=== PATIENT | male | born 1990 | race Caucasian/White ===

== ENCOUNTER 2024-01-03 15:45 | Emergency (ER) | payer MEDICAID ==
[~2024-01-03] VITALS: Ht 182.9 cm; Wt 65.3 kg
[~2024-01-03 15:45] MED LIST: IBUP-814 PO; NO HOME MEDS
[2024-01-03] MEDS ORDERED: HYDR-3965 PO (16:42)
[2024-01-03] MEDS ORDERED: BENZ9GEL TOP (16:42)
[2024-01-03] MEDS: ketorolac trometh. 30mg/ml inj. IV ONE (17:01)
[2024-01-03 17:21] VITALS: BP 130/78; PULSE 88; RESP 18; TEMP 97; O2SAT 97
== END 2024-01-03 17:24 | disposition home or self-care (01) ==
LOC: ER 15:45
DX: S02.5XXA Fracture of tooth (traumatic), initial encounter for closed fracture (principal); F12.90 Cannabis use, unspecified, uncomplicated; Z90.49 Acquired absence of other specified parts of digestive tract; Z98.890 Other specified postprocedural states; Z88.0 Allergy status to penicillin; Z79.1 Long term (current) use of non-steroidal anti-inflammatories (NSAID); X58.XXXA Exposure to other specified factors, initial encounter; Y93.89 Activity, other specified; Y92.89 Other specified places as the place of occurrence of the external cause; Y99.8 Other external cause status
CPT/HCPCS: 96374; 99283; J1885; J7030

== ENCOUNTER 2024-05-16 08:58 | Emergency (ER) | payer MEDICAID ==
[~2024-05-16] VITALS: Ht 182.9 cm; Wt 64.8 kg
[~2024-05-16 08:58] MED LIST changes: +BENZ9GEL TOP; +MELO-100 PO
[2024-05-16 08:59] VITALS: BP 130/88; PULSE 76; TEMP 97.8; O2SAT 100
[2024-05-16] MEDS ORDERED: BUPIVAcaine 0.5% W/EPI /PF 10ml vial IJ STA (09:23)
[2024-05-16] MEDS ORDERED: BENZ9GEL MM (09:39)
[2024-05-16 09:45] VITALS: RESP 16
[2024-05-16] MEDS: acetaminophen 325mg tablet PO ONE (09:45)
[2024-05-16] MEDS: ketorolac trometh 15mg/ml vial 15 MG/ML ML IM ONE (09:45)
== END 2024-05-16 09:52 | disposition home or self-care (01) ==
LOC: ER 08:58
DX: K08.89 Other specified disorders of teeth and supporting structures (principal); Z88.0 Allergy status to penicillin; Z90.49 Acquired absence of other specified parts of digestive tract; Z90.89 Acquired absence of other organs; Z79.899 Other long term (current) drug therapy
CPT/HCPCS: 96372; 99283; J1885